=== PATIENT | female | born 1975 | race Two or more races ===

== ENCOUNTER 2017-12-10 11:08 | Emergency (ER) | payer OTHER ==
[~2017-12-10] VITALS: Ht 154.9 cm; Wt 74.8 kg
[~2017-12-10 11:08] MED LIST: GILTUSS LIQUID237 M1 PO; TRAMADOL HCL-AP1 TAB PO; ZITHROMAX TRI-500 MG PO
[2017-12-10] MEDS ORDERED: CLONAZEPAM1 M1 (11:33)
== END 2017-12-10 13:28 | disposition home or self-care (01) ==
LOC: ER 11:08
DX: M25.521 Pain in right elbow (principal)

== ENCOUNTER 2018-05-18 19:28 | Inpatient (IN) | payer OTHER ==
[~2018-05-18] VITALS: Ht 154.9 cm; Wt 74.8 kg
[~2018-05-18 19:28] MED LIST changes: +CLONAZEPAM1 M1
[2018-05-21] MEDS ORDERED: INTEGRA PLUS C1 EACH PO (13:00)
== END 2018-05-21 14:57 | disposition home or self-care (01) | DRG 312 ==
LOC: ER 19:28 → EDSEX 19:35 → ER 19:35 → MEDI 05-19 10:51 → MEDJ 05-19 10:51
PROC: B345ZZZ Ultrasonography of Bilateral Common Carotid Arteries (ICD-10-PCS; principal; 2018-05-19)
PROC: B348ZZZ Ultrasonography of Bilateral Internal Carotid Arteries (ICD-10-PCS; 2018-05-19)
PROC: B246ZZZ Ultrasonography of Right and Left Heart (ICD-10-PCS; 2018-05-19)
PROC: 4A12X4Z Monitoring of Cardiac Electrical Activity, External Approach (ICD-10-PCS; 2018-05-19)
PROC: B030ZZZ Magnetic Resonance Imaging (MRI) of Brain (ICD-10-PCS; 2018-05-20)
DX: R55 Syncope and collapse (principal); F50.2 Bulimia nervosa; D50.8 Other iron deficiency anemias; R00.2 Palpitations
CPT/HCPCS: 70553

== ENCOUNTER 2018-05-25 08:51 | Emergency (ER) | payer OTHER ==
[~2018-05-25] VITALS: Ht 154.9 cm; Wt 74.8 kg
[~2018-05-25 08:51] MED LIST changes: +INTEGRA PLUS C1 EACH PO
[2018-05-25] MEDS ORDERED: CLONAZEPAM0.25 MG PO (08:58)
== END 2018-05-25 12:39 | disposition home or self-care (01) ==
LOC: ER 08:51
DX: R68.2 Dry mouth, unspecified (principal); F41.0 Panic disorder [episodic paroxysmal anxiety]; F43.0 Acute stress reaction

== ENCOUNTER → 2018-10-16 | Emergency (ER) | payer OTHER ==
[~2018-10-16] VITALS: Ht 154.9 cm; Wt 77.1 kg
[~2018-10-16] MED LIST changes: +CLONAZEPAM0.25 MG PO; +CLONAZEPAM0.5 MG
== END | disposition home or self-care (01) ==
LOC: ER 13:11
DX: N64.4 Mastodynia (principal)

== ENCOUNTER → 2018-12-05 | Emergency (ER) | payer OTHER | END | disposition left against medical advice (07) | LOC: ER 20:27 | DX: Z53.20 Procedure and treatment not carried out because of patient's decision for unspecified reasons (principal) ==

== ENCOUNTER 2019-08-20 19:59 | Emergency (ER) | payer OTHER ==
[~2019-08-20] VITALS: Ht 154.9 cm; Wt 77.1 kg
[2019-08-20] MEDS ORDERED: KETO10TA2 PO (23:58)
[2019-08-20] MEDS ORDERED: SKELAXIN800 MG PO (23:58)
== END 2019-08-21 00:37 | disposition home or self-care (01) ==
LOC: ER 19:59
DX: S93.691A Other sprain of right foot, initial encounter (principal); S93.402A Sprain of unspecified ligament of left ankle, initial encounter; W18.39XA Other fall on same level, initial encounter; Y93.89 Activity, other specified; Y92.89 Other specified places as the place of occurrence of the external cause; Y99.8 Other external cause status

== ENCOUNTER 2020-02-14 08:44 | Emergency (ER) | payer OTHER ==
[~2020-02-14] VITALS: Ht 154.9 cm; Wt 77.1 kg
[~2020-02-14 08:44] MED LIST changes: +KETO10TA2 PO; +SKELAXIN800 MG PO
== END 2020-02-14 11:19 | disposition home or self-care (01) ==
LOC: ER 08:44
DX: J02.8 Acute pharyngitis due to other specified organisms (principal)

== ENCOUNTER 2020-08-12 00:47 | Emergency (ER) | payer OTHER ==
[~2020-08-12] VITALS: Ht 154.9 cm; Wt 78.0 kg
[2020-08-12] MEDS ORDERED: TRAZODONE HCL50 MG (01:00)
[2020-08-12] MEDS ORDERED: ATIVAN1 M1 (01:00)
== END 2020-08-12 04:01 | disposition home or self-care (01) ==
LOC: ER 00:47
DX: R00.2 Palpitations (principal); F41.8 Other specified anxiety disorders

== ENCOUNTER 2021-04-03 19:48 | Emergency (ER) | payer OTHER ==
[~2021-04-03] VITALS: Ht 154.9 cm; Wt 79.4 kg
[~2021-04-03 19:48] MED LIST changes: +ATIVAN1 M1; +TRAZODONE HCL50 MG
== END 2021-04-03 21:42 | disposition home or self-care (01) ==
LOC: ER 19:48
DX: R42 Dizziness and giddiness (principal)

== ENCOUNTER 2024-01-10 06:30 | Emergency (ER) | payer OTHER ==
[~2024-01-10] VITALS: Ht 162.6 cm; Wt 77.1 kg
[2024-01-10] MEDS ORDERED: WELLBUTRIN XL300 MG (06:53)
[2024-01-10] MEDS ORDERED: GUAIFENESIN 200 MG/10 ML BLIST.PACK PO STA (08:32)
[2024-01-10] MEDS ORDERED: METHYLPREDNISOLONE SOD SUCC 125 MG VIAL IM STA (08:32)
[2024-01-10] MEDS ORDERED: IPRATROPIUM/ALBUTEROL SULFATE 3 ML AMPUL.NEB IH SCH (08:45)
[2024-01-10 09:37] LABS: HEMATOCRIT 33.1 % (36.0-45.00); HEMOGLOBIN 10.4 g/dL (12.0-15.00); MEAN CORPUSCULAR HGB CONC 31.5 g/dl (32.0-36.0); PLATELET COUNT 402 K/uL (150-450)
[2024-01-10 09:38] LABS: MEAN CELL VOLUME 64.9 fL (80.00-100.00)
[2024-01-10 09:39] LABS: MEAN CORPUSCULAR HEMOGLOBIN 20.5 pg (27.00-32.0)
[2024-01-10 10:13] LABS: ALBUMIN 3.5 gm/dL (3.4-5.0); BILIRUBIN TOTAL 0.21 mg/dL (0.3-1.2); CALCIUM 8.7 mg/dL (8.5-10.1); CREATININE SERUM 0.68 mg/dL (0.55-1.02); GFR 91.59; GLOBULINA 4.2 G/DL (2.4-3.5); POTASSIUM 4.08 mEq/L (3.5-5.1); TOTAL PROTEIN 7.7 gm/dL (6.4-8.2)
[2024-01-10] MEDS ORDERED: LEVALBUTER0.63 MG/3 IH (11:27)
== END 2024-01-10 11:56 | disposition home or self-care (01) ==
LOC: ER 06:30
PROVIDERS: General Practice
DX: J06.9 Acute upper respiratory infection, unspecified (principal); D64.89 Other specified anemias; N39.0 Urinary tract infection, site not specified; J20.9 Acute bronchitis, unspecified; Z20.822 Contact with and (suspected) exposure to COVID-19

== ENCOUNTER 2024-05-26 19:14 | Emergency (ER) | payer OTHER ==
[~2024-05-26] VITALS: Ht 157.5 cm; Wt 76.7 kg
[~2024-05-26 19:14] MED LIST changes: +LEVALBUTER0.63 MG/3 IH; +WELLBUTRIN XL300 MG
[2024-05-26 23:35] LABS: URINE APPEARANCE Clear; URINE BILIRRUBIN Negative (NEGATIVE); URINE BLOOD Moderate; URINE COLOR Yellow; URINE GLUCOSE Negative (NEGATIVE); URINE LEUKOCYTE Negative; URINE NITRATE Negative; URINE PROTEIN Negative (NEGATIVE)
[2024-05-26 23:36] LABS: URINE BACTERIA 60.4 uL (0.0-1933); URINE EPITHELIAL CELLS 5.2 uL (0.0-38.8); URINE RBC 64.8 uL (0.0-20.8); URINE WBC 3.2 uL (0.0-23.2)
[2024-05-26 23:40] LABS: HEMATOCRIT 33.2 % (36.0-45.00); HEMOGLOBIN 10.2 g/dL (12.0-15.00); MEAN CORPUSCULAR HEMOGLOBIN 18.8 pg (27.00-32.0); MEAN CORPUSCULAR HGB CONC 30.9 g/dl (32.0-36.0); PLATELET COUNT 345 K/uL (150-450); RED BLOOD COUNT 5.46 M/uL (4.00-6.00); RED CELL DISTRIBUTION WIDTH 17.9 % (11.5-14.5)
[2024-05-26 23:43] LABS: MEAN CELL VOLUME 60.8 fL (80.00-100.00)
[2024-05-27 00:16] LABS: BILIRUBIN TOTAL 0.3 mg/dL (0.3-1.2); CALCIUM 9.3 mg/dL (8.5-10.1); CREATININE SERUM 0.7 mg/dL (0.55-1.02); GFR 88.57; GLOBULINA 3.8 G/DL (2.4-3.5); POTASSIUM 3.89 mEq/L (3.5-5.1); TOTAL PROTEIN 7.8 gm/dL (6.4-8.2)
[2024-05-27] MEDS ORDERED: TUSNEL LIQUID178 ML PO (01:20)
[2024-05-27] MEDS ORDERED: XOPENEX CO1.25 MG/0. IH (01:20)
== END 2024-05-27 01:32 | disposition home or self-care (01) ==
LOC: ER 19:15
PROVIDERS: Emergency Medicine
DX: J00 Acute nasopharyngitis [common cold] (principal); R53.1 Weakness; F41.8 Other specified anxiety disorders; D64.89 Other specified anemias

== ENCOUNTER 2024-09-16 05:17 | Emergency (ER) | payer OTHER ==
[~2024-09-16] VITALS: Ht 157.5 cm; Wt 72.6 kg
[~2024-09-16 05:17] MED LIST changes: +FAMOTIDINE20 MG PO; +FOLIC ACID1 MG PO; +LEVOFLOXACIN500 MG PO; +MUCINEX600 MG PO; +PROTONIX40 MG PO; +TUSNEL LIQUID178 ML PO; +VITAMIN B-121000 MCG PO; +XOPENEX CO1.25 MG/0. IH
[2024-09-16 07:42] LABS: HEMATOCRIT 30.3 % (36.0-45.00); HEMOGLOBIN 9.4 g/dL (12.0-15.00); MEAN CORPUSCULAR HEMOGLOBIN 18.5 pg (27.00-32.0); MEAN CORPUSCULAR HGB CONC 30.9 g/dl (32.0-36.0); PLATELET COUNT 313 K/uL (150-450); RED BLOOD COUNT 5.07 M/uL (4.00-6.00)
[2024-09-16 07:45] LABS: MEAN CELL VOLUME 59.8 fL (80.00-100.00); RED CELL DISTRIBUTION WIDTH 21.5 % (11.5-14.5)
[2024-09-16] MEDS ORDERED: MONTELUKAST SODIUM 10 MG TABLET PO ONE (11:00)
[2024-09-16] MEDS ORDERED: LEVALBUTEROL HCL 1.25 MG/3 ML SOLUTION IH ONE (11:00)
[2024-09-16] MEDS ORDERED: IPRATROPIUM BROMIDE 0.5 MG/2.5 ML AMPUL.NEB IH ONE (11:00)
[2024-09-16] MEDS ORDERED: GUAIFENESIN 200 MG/10 ML BLIST.PACK PO ONE (11:00)
[2024-09-16] MEDS ORDERED: METHYLPREDNISOLONE SOD SUCC 40 MG VIAL IM ONE (11:00)
[2024-09-16 12:09] LABS: ALBUMIN 3.5 gm/dL (3.4-5.0); BILIRUBIN TOTAL 0.22 mg/dL (0.3-1.2); CALCIUM 8.7 mg/dL (8.5-10.1); CREATININE SERUM 0.65 mg/dL (0.55-1.02); GFR 96.09; GLOBULINA 3.6 G/DL (2.4-3.5); POTASSIUM 3.52 mEq/L (3.5-5.1); TOTAL PROTEIN 7.1 gm/dL (6.4-8.2)
[2024-09-16] MEDS ORDERED: LEVALBUTER0.63 MG/3 IH (12:46)
[2024-09-16] MEDS ORDERED: MONTELUKAST SODI4 M1 PO (12:46)
[2024-09-16 14:19] LABS: ABG PH 7.444 (7.35-7.45); ABG PO2 108.5 mmHg (80-100); ABG pCO2 35.6 mmHg (35-45); BASE EXCESS 0.2 mmol/l; BICARBONATE 23.8 mmol/l (23-25); SaO2 98.4 %; Tco2 24.9 mmol/l; o2 21 %
[2024-09-16 14:20] LABS: allen test SATISFACTORY; puncture site RADIAL RIGHT
== END 2024-09-16 12:54 | disposition home or self-care (01) ==
LOC: ER 05:18
PROVIDERS: General Practice
DX: J45.909 Unspecified asthma, uncomplicated (principal); E03.9 Hypothyroidism, unspecified; Z20.822 Contact with and (suspected) exposure to COVID-19; R00.2 Palpitations

== ENCOUNTER 2024-11-27 02:02 | Emergency (ER) | payer OTHER ==
[~2024-11-27] VITALS: Ht 154.9 cm; Wt 72.6 kg
[~2024-11-27 02:02] MED LIST changes: +MONTELUKAST SODI4 M1 PO
[2024-11-27] MEDS ORDERED: IPRATROPIUM/ALBUTEROL SULFATE 3 ML AMPUL.NEB IH STA (03:53)
[2024-11-27] MEDS ORDERED: METHYLPREDNISOLONE SOD SUCC 125 MG VIAL IV STA (03:53)
[2024-11-27] MEDS ORDERED: HYDROCODONE/CHLORPHEN P-STIREX 5 ML ML PO STA (03:54)
[2024-11-27] MEDS ORDERED: IPRATROPIUM/ALBUTEROL SULFATE 3 ML AMPUL.NEB IH ONE (04:04)
[2024-11-27] MEDS ORDERED: METHYLPREDNISOLONE SOD SUCC 125 MG VIAL ONE (04:04)
[2024-11-27] MEDS ORDERED: WATER FOR INJ.,BACTERIOSTATIC 30 ML VIAL IJ ONE (04:04)
== END 2024-11-27 07:10 | disposition home or self-care (01) ==
LOC: ER 02:04
DX: J45.909 Unspecified asthma, uncomplicated (principal)
CPT/HCPCS: 94640; 96365; 99283; J3490